=== PATIENT | female | born 1950 | race Caucasian/White ===

== ENCOUNTER 2016-09-26 13:25 | Outpatient (CLI) | payer MEDICARE, BC | END 2016-09-26 23:59 | DX: J11.1 Influenza due to unidentified influenza virus with other respiratory manifestations (principal) ==

== ENCOUNTER 2016-10-01 11:05 | Outpatient (CLI) | payer MEDICARE, BC | END 2016-10-01 11:06 | disposition home or self-care (01) | DX: J06.9 Acute upper respiratory infection, unspecified (principal); D72.819 Decreased white blood cell count, unspecified ==

== ENCOUNTER 2018-06-21 18:44 | Emergency (ER) | payer MEDICARE, BC ==
--- NOTE | 2018-06-21 20:31 | ED Physician Documentation ---
PD HPI OPHTHO - Stated complaint Stated Complaint: LT EYE BLOOD/PRESSURE - Chief complaint Chief Complaint: Heent - History obtained from History obtained from: Patient - History of Present Illness Timing - onset: Today Timing - duration: Hours Timing - details: Abrupt onset (she was not aware of injury, rubbing eye or such. She was working at home and got up to use restroom and noted redness in eye when looking in mirror. Feels perhaps slight pressure in eye. No change in vision. She has been having some neck pain right side and headaches intermit tently. And some joint pains. Had been to PMD last week with labs done including blood count and ESR (she has colitis and her doctor follows these). She says these were okay.), Still present Quality / character: No: Aching, Throbbing Associated symptoms: Redness (just red area lateral sclera left eye.). No: FB sensation, Photophobia Contributing factors: Wears contacts. No: Recent URI, FB, Blunt trauma Similar symptoms before: Has not had sx before Recently seen: Not recently seen Review of Systems Constitutional: denies: Fever, Chills Nose: denies: Rhinorrhea / runny nose, Congestion Throat: denies: Sore throat Respiratory: denies: Cough GI: denies: Constipation PD PAST MEDICAL HISTORY - Past Medical History Past Medical History: Yes Cardiovascular: None Respiratory: None Endocrine/Autoimmune: None GI: Ulcerative colitis - Past Surgical History Past Surgical History: No General: Hiatal hernia repair Ortho: Rotator cuff repair - Present Medications Home Medications: Ambulatory Orders Medication Instructions Recorded Confirmed Clobetasol Propionate/Emoll 1 06/21/18 [Clobetasol Emollient 0.05% Crm] Estradiol [Estrace] 1 06/21/18 Infliximab-Abda [Renflexis] 1 06/21/18 Trospium Chloride [Trospium 1 06/21/18 Chloride ER] - Allergies Allergies/Adverse Reactions: Allergies Allergy/AdvReac Type Severity Reaction Status Date / Time Tetracyclines Allergy Hives Verified 06/21/18 18:52 - Social History Does the pt smoke?: No Smoking Status: Never smoker Does the pt drink ETOH?: Yes Does the pt have substance abuse?: No - Immunizations Immunizations are current?: Yes PD ED PE NORMAL - Vitals Vital signs reviewed: Yes - General General: Alert and oriented X 3, No acute distress, Well developed/nourished - HEENT HEENT: PERRL, EOMI, Ears normal, Pharynx benign, Other (left lateral small subconjunctival hemorrhage. Stops at iris border. Anterior chamber is normal. Posterior chamber clear without clouding. FUndus is good. No FB seen on eye. ) - Neck Neck: Supple, no meningeal sign, No adenopathy Results - Vitals Vitals: Oxygen O2 Source Room air PD MEDICAL DECISION MAKING - ED course Complexity details: considered differential (recent blood work of blood count and ESR, chemistries last week. So presume inadvertent injury such as eye rubbing. ), d/w patient Departure - Departure Disposition: 01 Home, Self Care Clinical Impression: Subconjunctival hemorrhage Qualifiers: Laterality: left Qualified Code(s): H11.32 - Conjunctival hemorrhage, left eye Condition: Stable Record reviewed to determine appropriate education?: Yes Instructions: ED Eye Injury Subconj Hemorrhage Follow-Up: ADAL SERNA MD [Primary Care Provider] - Comments: This should absorb and slowly fade away over the next week. Since you have had a blood test in the last week or so looking at blood count and inflammation markers, I do not see any indication for any more serious cause for this. Was most likely local pressure/injury on the eye without awareness, such as lightly rubbing it or an irritation from the contacts. Discharge Date/Time: 06/21/18 21:06
[2018-06-21 21:07] VITALS: BP 140/78
== END 2018-06-21 21:06 | disposition home or self-care (01) ==
LOC: ED 18:44
DX: H11.32 Conjunctival hemorrhage, left eye (principal)
CPT/HCPCS: 99283

== ENCOUNTER 2019-04-11 20:16 | Emergency (ER) | payer MEDICARE, OTHER ==
--- NOTE | 2019-04-11 20:25 | ED Physician Documentation ---
PD HPI SKIN - Stated complaint Stated Complaint: REACTION TO INJECTION - Chief complaint Chief Complaint: Wound - History obtained from History obtained from: Patient - History of Present Illness Timing - onset: How many days ago (2-3) Timing - duration: Days Timing - details: Gradual onset, Constant Location: LUE Quality / character: Painful, Discolored, Raised Associated symptoms: Fever (Tmax 102 (yesterday)). No: Joint pain, Facial swelling, Dyspnea Contributing factors: Exposed to medication Similar symptoms before: Has not had sx before Recently seen: Clinic - Additional information Additional information: patient had zoster (shingles) immunization 4 days ago to [facility], c/o 2 days of gradually increasing erythema surrounding the injection site with tenderness and swelling. Fever Tmax 102 (yesterday) Review of Systems Constitutional: reports: Fever Cardiac: reports: Reviewed and negative Respiratory: reports: Reviewed and negative Skin: reports: Rash Musculoskeletal: reports: Extremity pain, Extremity swelling Neurologic: denies: Focal weakness, Numbness PD PAST MEDICAL HISTORY - Past Medical History Cardiovascular: None Respiratory: None Endocrine/Autoimmune: None GI: Ulcerative colitis - Past Surgical History Past Surgical History: No General: Hiatal hernia repair Ortho: Rotator cuff repair - Present Medications Home Medications: Ambulatory Orders Medication Instructions Recorded Confirmed Clobetasol Propionate/Emoll 1 06/21/18 [Clobetasol Emollient 0.05% Crm] Estradiol [Estrace] 1 06/21/18 Infliximab-Abda [Renflexis] 1 06/21/18 Trospium Chloride [Trospium 1 06/21/18 Chloride ER] Cephalexin [Keflex] 500 mg PO Q6H #27 capsule 04/11/19 - Allergies Allergies/Adverse Reactions: Allergies Allergy/AdvReac Type Severity Reaction Status Date / Time Tetracyclines Allergy Hives Verified 04/11/19 20:23 - Social History Does the pt smoke?: No Smoking Status: Never smoker Does the pt drink ETOH?: Yes Does the pt have substance abuse?: No - Immunizations Immunizations are current?: Yes PD ED PE NORMAL - Vitals Vital signs reviewed: Yes - General General: Alert and oriented X 3, No acute distress, Well developed/nourished - Neck Neck: Supple, no meningeal sign - Extremities Extremities: Normal ROM s pain PD ED PE EXPANDED - Extremities ROBERTO UE/Hands Visual: 1 - bruising (faint ecymosis c/w recent injection site) 2 - rash (faint erythema without sharp margins; mild TTP, mild swelling, no fluctuance, no palpable cord, mildly increased tactile temperature compared to surrounding skin and same area on other arm) Results - Vitals Vitals: Vital Signs - 24 hr 04/11/19 20:20 Temperature 36.3 C L Heart Rate 64 Respiratory 18 Rate Blood Pressure 148/76 H O2 Saturation 99 Oxygen O2 Source Room air PD MEDICAL DECISION MAKING - ED course Complexity details: considered differential, d/w patient ED course: afebrile in ED. signs and symptoms could be within list of side effects due to the recent shingles injection, but will cover with antibiotic for possible infectious complication (cellulitis) Departure - Departure Disposition: 01 Home, Self Care Clinical Impression: Cellulitis Qualifiers: Site of cellulitis: extremity Site of cellulitis of extremity: upper extremity Laterality: left Qualified Code(s): L03.114 - Cellulitis of left upper limb Condition: Good Instructions: ED Staph Infec Abx Tx Only Follow-Up: MAGALIE COLBERT MD [Primary Care Provider] - Prescriptions: Cephalexin [Keflex] 500 mg PO Q6H #27 capsule Discharge Date/Time: 04/11/19 21:05
[2019-04-11 20:30] VITALS: BP 148/76
[2019-04-11] MEDS ORDERED: cephALEXin 250 MG CAPSULE PO STA (20:56)
== END 2019-04-11 21:05 | disposition home or self-care (01) ==
LOC: ED 20:16
DX: L03.114 Cellulitis of left upper limb (principal)
CPT/HCPCS: 99282; 99283; A9270

== ENCOUNTER 2023-02-12 13:15 | Outpatient (CLI) | payer MEDICARE, OTHER ==
--- NOTE | 2023-02-12 14:35 | XRAY Report ---
PROCEDURE: Chest 2 View X-Ray INDICATIONS: WALKING PNEUMONIA TECHNIQUE: 2 views of the chest were acquired. COMPARISON: None. FINDINGS: Surgical changes and devices: None. Lungs and pleura: No pleural effusions or pneumothorax. Lungs are clear. Mediastinum: Mediastinal contours appear normal. Heart size is normal. Bones and chest wall: No suspicious bony lesions. Overlying soft tissues appear unremarkable. IMPRESSION: No acute cardiopulmonary process. Reviewed by: Marcelino Mullins MD on 02/12/2023 2:34 PM PDT Approved by: Marcelino Mullins MD on 02/12/2023 2:34 PM PDT Station ID: [id number]
== END 2023-02-12 13:30 | disposition home or self-care (01) ==
LOC: DI.N 13:15
PROVIDERS: ATTEND Physician Assistant Medical
DX: J18.9 Pneumonia, unspecified organism (principal)

== ENCOUNTER 2023-05-20 19:01 | Emergency (ER) | payer MEDICARE, OTHER ==
[2023-05-20 22:44] LABS: BASOPHILS % (AUTO) 0.5 %; EOSINOPHILS % (AUTO) 0.7 %; HCT - HEMATOCRIT 42.6 % (37.0-47.0); HGB - HEMOGLOBIN 13.9 g/dL (12.0-16.0); LYMPHOCYTES # (AUTO) 2.7 10^3/uL (1.5-3.5); LYMPHOCYTES % (AUTO) 48.7 %; MEAN CORPUSCULAR HEMOGLOBIN 28.4 pg (27.0-31.0); MEAN CORPUSCULAR HGB CONC 32.6 g/dL (32.0-36.0); MEAN CORPUSCULAR VOLUME 86.9 fL (81.0-99.0); MEAN PLATELET VOLUME 9.1 fL (7.9-10.8); MONOCYTES # (AUTO) 0.4 10^3/uL (0.0-1.0); MONOCYTES % (AUTO) 7.6 %; NEUTROPHILS # (AUTO) 2.3 10^3/uL (1.5-6.6); NEUTROPHILS % (AUTO) 42.3 %; PLT - PLATELET COUNT 182 10^3/uL (130-450); RED CELL DISTRIBUTION WIDTH 12.5 % (12.0-15.0); WHITE BLOOD COUNT 5.5 x10^3/uL (4.8-10.8)
[2023-05-20 22:54] LABS: CALCIUM 9.4 mg/dL (8.5-10.3); CREATININE 0.7 mg/dL (0.6-1.3); POTASSIUM 3.7 mmol/L (3.5-4.5)
[2023-05-21 00:57] LABS: BILIRUBIN,URINE NEGATIVE (NEGATIVE); GLUCOSE, URINE (UA) NEGATIVE (NEGATIVE); KETONES,URINE (UA) NEGATIVE (NEGATIVE); LEUKOCYTE ESTERASE, URINE TRACE (NEGATIVE); NITRITE,URINE NEGATIVE (NEGATIVE); OCCULT BLOOD,URINE NEGATIVE (NEGATIVE); PH,URINE 7.5 PH (5.0-7.5); PROTEIN,URINE NEGATIVE (NEGATIVE); UROBILINOGEN,URINE 0.2 (NORMAL) E.U./dL (NORMAL)
[2023-05-21 01:02] LABS: CLARITY,URINE CLEAR (CLEAR)
[2023-05-21 01:03] LABS: BACTERIA,URINE Rare /HPF (None Seen); RBC,URINE 0-5 /HPF (0-5); SQUAMOUS EPITHELIAL CELL,UR FEW Squamous (<= Few)
[2023-05-21] MEDS ORDERED: cloNIDine 0.1 MG TABLET PO STA (01:27)
[2023-05-21 02:15] VITALS: BP 171/103; O2SAT 98
--- NOTE | 2023-05-21 19:44 | ED Physician Documentation ---
History of Present Illness - Stated complaint Stated Complaint: HIGH BP - Chief complaint Chief Complaint: General - History obtained from History obtained from: Patient - Additonal information Additional information: HPI from patient. Patient's chief concern is high blood pressure readings at home this evening. She says her blood pressures typically run 120s systolic and that she used to take her blood pressure on a regular basis; unclear when she stopped taking her BP regularly but has been at least a few weeks due to recent of her . This evening she felt "pressure in my head but not a headache" (per patient), prompting her to take her BP with result of 155/100. She denies h/o hypertension. She is particularly concerned due to family h/o cerebral aneurysm and she is worried that the pressure sensation in her head and her high blood pressure might be indications of a similar problem for her. She denies n/v, visual changes, weakness. On ROS, she says she has been having decreased sensation of the 3rd-5th right toes for past few weeks but otherwise no paresthesias/numbness. Denies chest pain, dyspnea, dizziness/lightheadedness. Review of Systems Eyes: denies: Loss of vision, Decreased vision Cardiac: reports: Reviewed and negative Respiratory: reports: Reviewed and negative GI: reports: Reviewed and negative Neurologic: reports: Numbness (paresthesias of right 3rd, 4th, 5th toes). denies: Generalized weakness, Focal weakness, Confused, Altered mental status, Headache PD PAST MEDICAL HISTORY - Past Medical History Cardiovascular: None Respiratory: None Neuro: None Endocrine/Autoimmune: None GI: Ulcerative colitis SLP: None : None HEENT: None Psych: None Musculoskeletal: None Derm: None - Past Surgical History Past Surgical History: No General: Hiatal hernia repair Ortho: Rotator cuff repair - Present Medications Home Medications: Ambulatory Orders Medication Instructions Recorded Confirmed Clobetasol Propionate/Emoll 1 applic Q7D 06/21/18 05/20/23 [Clobetasol Emollient 0.05% Crm] Zoledronic Acid 5Mg/100Ml Chyna 5 mg IV ONCE 05/20/23 05/20/23 [Reclast 5 mg/100 ml Bottle] - Allergies Allergies/Adverse Reactions: Allergies Allergy/AdvReac Type Severity Reaction Status Date / Time Tetracyclines Allergy Hives Verified 05/20/23 19:09 - Social History Does the pt smoke?: No Smoking Status: Never smoker Does the pt drink ETOH?: Yes Does the pt have substance abuse?: No - Immunizations Immunizations are current?: Yes - POLST Patient has POLST: No PD ED PE NORMAL - Vitals Vital signs reviewed: Yes - General General: Alert and oriented X 3, No acute distress, Well developed/nourished - HEENT HEENT: PERRL, EOMI - Cardiac Cardiac: RRR, No murmur - Respiratory Respiratory: No respiratory distress, Clear bilaterally - Neuro Neuro: Alert and oriented X 3, ladle puller 2-12 intact, No motor deficit, Normal speech Eye Opening: Spontaneous Motor: Obeys Commands Verbal: Oriented GCS Score: 15 Results - Vitals Vitals: Vital Signs - 24 hr 05/20/23 05/20/23 05/20/23 22:06 22:39 23:27 Heart Rate 61 65 85 Respiratory 18 17 18 Rate Blood Pressure 171/99 H 159/86 H 165/119 H O2 Saturation 98 98 100 05/21/23 05/21/23 01:00 01:30 Heart Rate 64 70 Respiratory 18 18 Rate Blood Pressure 181/98 H 171/103 H O2 Saturation 98 98 Oxygen O2 Source Room air - Labs Labs: Microbiology 05/20/23 22:01 Urine Culture - Preliminary Urine,Clean Catch CULTURE IN PROGRESS. RESULTS TO FOLLOW. Laboratory Tests 05/20/23 05/20/23 05/20/23 22:01 22:34 22:34 WBC 5.5 RBC 4.90 Hgb 13.9 Hct 42.6 MCV 86.9 MCH 28.4 MCHC 32.6 RDW 12.5 Plt Count 182 MPV 9.1 Neut # (Auto) 2.3 Lymph # (Auto) 2.7 [place] # (Auto) 0.4 Eos # (Auto) 0.0 Baso # (Auto) 0.0 Absolute Nucleated RBC 0.00 Nucleated RBC % 0.0 Sodium 141 Potassium 3.7 Chloride 106 Carbon Dioxide 29 Anion Gap 6.0 BUN 20 Creatinine 0.7 Estimated GFR (MDRD) 82 L Glucose 91 Calcium 9.4 Urine Color YELLOW Urine Clarity CLEAR Urine pH 7.5 Ur Specific [place] 1.015 Urine Protein NEGATIVE Urine Glucose (UA) NEGATIVE Urine Ketones NEGATIVE Urine Occult Blood NEGATIVE Urine Nitrite NEGATIVE Urine Bilirubin NEGATIVE Urine Urobilinogen 0.2 (NORMAL) Ur Leukocyte Esterase TRACE H Urine RBC 0-5 Urine WBC 4-5 Ur Squamous Epith Cells FEW Squamous Urine Bacteria Rare Urine Culture Comments INDICATED PD Medical Decision Making - ED course Complexity details: reviewed results, re-evaluated patient, considered differential, d/w patient ED course: Patient presents with what is nearly/arguably asymptomatic hypertension; her blood pressure readings are high in ED, and I suspect her description of pressure/fullness sensation of her head (she specifically says she would not describe it as a headache nor painful) is due to the high blood pressures. She has no other signs/symptoms, and basic blood tests are normal (CBC, BMP). Thus no indication of end-organ damage from high blood pressures at this time. She has an appointment with her PCP tomorrow. She had been monitoring her BP at home on a regular basis up until several weeks ago. A contributing factor could be the stress due to recent of her spouse. I discussed results with patient and reviewed with her the approach to asymptomatic hypertension from ER standpo int. She is given 0.2 mg PO clonidine to help lower her BP in the overnight and will follow up with PCP tomorrow as scheduled. I also d/w patient signs/symptoms that would suggest ICH and that her lack of these signs/symptoms indicate no need for emergent imaging (such as CTA). Return precautions reviewed prior to d/c. Departure - Departure Disposition: 01 Home, Self Care Clinical Impression: Hypertension Qualifiers: Hypertension type: unspecified Qualified Code(s): I10 - Essential (primary) hypertension Condition: Good Instructions: ED Hypertension Poss Follow-Up: MAGALIE COLBERT MD [Primary Care Provider] - Comments: There were no concerning findings on tonight's (basic) blood tests. These were done to ensure that your high blood pressure is not as of yet caused any evidence of damage to your organs such as your liver and kidneys. Nonetheless, your blood pressures were certainly quite elevated during your ED stay (ranging from 140s-180s / 80s-100s). You were given a 1-time dose of clonidine; this is a medication that helps reduce blood pressure. It is not a good choice for long-term control because of potential side effects, but as a 1-time dose for high blood pressures in the ER; this medication often helps temporarily improve the blood pressures until expedited follow-up, and you have indicated that you have an appointment with your primary care provider tomorrow. Your primary care provider can reassess your blood pressure, determine if any further testing is indicated, and advise whether long-term blood pressure medications are indicated. Regarding your sensation of pressure in your head, I suspect this is due to your high blood pressure rather than causing it. I understand your concern that you have a family history of cerebral aneurysm and this is in the forefront of your mind, but, as we discussed, this would be a very unlikely explanation for your symptoms. Unruptured aneurysms rarely cause symptoms, and ruptured aneurysms typically cause severe headache at a minimum (often along with other symptoms and signs such as altered mental status, weakness/numbness, nausea/vomiting, visual changes). Forms: PCP List Discharge Date/Time: 05/21/23 01:40
== END 2023-05-21 01:40 | disposition home or self-care (01) ==
LOC: ED 19:01
DX: I10 Essential (primary) hypertension (principal)
CPT/HCPCS: 36415; 80048; 81001; 85025; 87086; 99283; A9270